=== PATIENT | female | born 1985 | race Caucasian/White ===

== ENCOUNTER 2018-03-08 00:56 | Emergency (ER) | payer SELFPAY ==
[~2018-03-08] VITALS: Ht 170.2 cm; Wt 81.3 kg
[2018-03-08] MEDS ORDERED: IV NORMAL SALINE 1000ML BAG 1,000 ML IV ONE (01:30)
[2018-03-08] MEDS ORDERED: DEXAMETHASONE SOD PHOS 4 MG/ML VIAL IV ONE (01:45)
[2018-03-08] MEDS ORDERED: KETOROLAC 30 MG/ML VIAL. IV ONE (01:45)
[2018-03-08 02:29] LABS: BASO # 0.1 x10^3/uL (0.0-0.2); BASO % 1 % (0-3); EOS # 0.1 x10^3/uL (0.0-0.7); EOS % 1 % (0-3); HEMATOCRIT 39.8 % (36.0-47.0); HEMOGLOBIN 13.9 g/dL (12.0-15.5); LYMPH # 3.5 x10^3/uL (1.0-4.8); LYMPH % 31 % (24-48); MEAN CORPUSCULAR HEMOGLOBIN 35 pg (25-35); MEAN CORPUSCULAR HGB CONC 35 g/dL (31-37); MEAN CORPUSCULAR VOLUME 101 fL (79-100); MONO # 0.8 x10^3/uL (0.0-1.1); MONO % 8 % (0-9); NEUT # 6.6 x10^3uL (1.8-7.7); NEUT % 59 % (31-73); PLATELET COUNT 210 x10^3/uL (140-400); RED BLOOD COUNT 3.93 x10^6/uL (3.50-5.40); RED CELL DISTRIBUTION WIDTH 13.5 % (11.5-14.5); WHITE BLOOD COUNT 11.2 x10^3/uL (4.0-11.0)
[2018-03-08] MEDS ORDERED: PRED50TA PO (03:00)
--- NOTE | 2018-03-08 03:07 | PHYS DOC ---
Past Medical History Past Medical History: No Pertinent History Past Surgical History: No Surgical History Alcohol Use: Occasionally Drug Use: None Adult General Chief Complaint Chief Complaint: SORE THROAT HPI HPI Patient is a 32 year old female who presents with sore throat and perceived swelling in her throat. Patient has been ill over the last 2-3 days. She primarily complains of sore throat. She also feels like there is some swelling in her throat that causes her to gag at home. She was evaluated at [facility] last night for the same complaint. According to the patient, she had a CT scan of the neck completed. She was given some unknown medication in her IV as well. She was discharged to home and given Percocet for pain. She does have the Percocet at home and states they have not been helping her. She felt this evening like she was gagging and she states she was afraid to go to sleep for fears that she would not be able to breathe. She has not had any acute respiratory distress. No fever but she has had some chills. According to the patient, her strep screen last night was negative. Review of Systems Review of Systems Constitutional: + chills Eyes: Denies change in visual acuity HENT: sore throat Respiratory: Denies SOA, + some coughing Cardiovascular: No additional information not addressed in HPI GI: Denies abdominal pain : Denies dysuria Musculoskeletal: Denies Integument: Denies rash Neurologic: Denies headache Endocrine: Denies polyuria All other systems were reviewed and found to be within normal limits, except as documented in this note. Current Medications Current Medications Current Medications Medications (Trade) Dose Ordered Sig/Frank Start Time Stop Time Status Last Admin Dose Admin Dexamethasone Sodium Phosphate (Decadron) 8 mg 1X ONCE 03/08/18 01:45 03/08/18 01:46 DC 03/08/18 02:09 8 MG Ketorolac Tromethamine (Toradol 30mg Vial) 30 mg 1X ONCE 03/08/18 01:45 03/08/18 01:46 DC 03/08/18 02:08 30 MG Lidocaine HCl (Viscous Lidocaine) 15 ml 1X ONCE 03/08/18 03:45 03/08/18 03:46 DC 03/08/18 03:38 15 ML Sodium Chloride 1,000 ml @ 1,000 mls/hr 1X ONCE 03/08/18 01:30 03/08/18 02:29 DC 03/08/18 02:07 1,000 MLS/HR Allergies Allergies Allergies Coded Allergies Type Severity Reaction Last Updated Verified mushroom Allergy Intermediate Shortness of Air 03/08/18 Yes acetaminophen Allergy Mild Rash 03/08/18 Yes hydrocodone Allergy Mild Rash 03/08/18 Yes bee venom protein (honey bee) Allergy Unknown 03/08/18 Yes Physical Exam Physical Exam Constitutional: Well developed, well nourished, no acute distress, non-toxic appearance HENT: Normocephalic, atraumatic, bilateral external ears normal, oropharynx moist, no oral exudates, nose normal, uvula appears very mildly edematous, posterior oral pharynx is mildly injected, no exudates. no swelling, Eyes: PERRLA, EOMI, conjunctiva normal Neck: Normal range of motion, no tenderness, supple Cardiovascular:Heart rate regular rhythm, no murmur Lungs & Thorax: Bilateral breath sounds clear to auscultation Skin: Warm, dry, no erythema, no rash Neurologic: Alert and oriented X 3 Psychologic: Affect normal Current Patient Data Vital Signs Vital Signs Date Time Temp Pulse Resp B/P (MAP) Pulse Ox O2 Delivery O2 Flow Rate FiO2 03/08/18 03:52 94 16 127/79 (95) 100 Room Air 03/08/18 01:01 99.4 99.4 Lab Values Laboratory Tests Test 03/08/18 01:09 03/08/18 02:15 POC Urine HCG, Qualitative Hcg negative (Negative) White Blood Count 11.2 x10^3/uL (4.0-11.0) H Red Blood Count 3.93 x10^6/uL (3.50-5.40) Hemoglobin 13.9 g/dL (12.0-15.5) Hematocrit 39.8 % (36.0-47.0) Mean Corpuscular Volume 101 fL (79-100) H Mean Corpuscular Hemoglobin 35 pg (25-35) Mean Corpuscular Hemoglobin Concent 35 g/dL (31-37) Red Cell Distribution Width 13.5 % (11.5-14.5) Platelet Count 210 x10^3/uL (140-400) Neutrophils (%) (Auto) 59 % (31-73) Lymphocytes (%) (Auto) 31 % (24-48) Monocytes (%) (Auto) 8 % (0-9) Eosinophils (%) (Auto) 1 % (0-3) Basophils (%) (Auto) 1 % (0-3) Neutrophils # (Auto) 6.6 x10^3uL (1.8-7.7) Lymphocytes # (Auto) 3.5 x10^3/uL (1.0-4.8) Monocytes # (Auto) 0.8 x10^3/uL (0.0-1.1) Eosinophils # (Auto) 0.1 x10^3/uL (0.0-0.7) Basophils # (Auto) 0.1 x10^3/uL (0.0-0.2) Laboratory Tests 03/08/18 02:15 EKG EKG [] Radiology/Procedures Radiology/Procedures [] Course & Med Decision Making Course & Med Decision Making Pertinent Labs and Imaging studies reviewed. (See chart for details) Patient is seen and examined after arrival to her room. She is in no acute distress. Her vital signs are stable but she is noted to have mild tachycardia with a heart rate of 108. Her oxygen saturation is 96% on room air. Her physical exam is documented above and there are no acute findings. There is no visible acute airway swelling and she has no distress. I discussed the possibility of false negative strep screen. We will recheck her strep screen this evening. IV fluids are ordered for her tachycardia. She does not have a fever this evening. Will give a dose of Decadron and Toradol intravenously. 03:05: Patient resting quietly with no distress. IVF's running. SaO2 96% on RA. 04:00: Patient was given some 2% viscous lidocaine to gargle and spit. She did get some relief of her pain symptoms with this. She is overall feeling improved after the fluids and the Decadron in the Toradol. Plan is for discharge home. She is placed on prednisone 50 mg daily over the next couple of days. She is given reassurance that her pain will improve. She will come back to the ER if she does develop any difficulties breathing. Dragon Disclaimer Dragon Disclaimer This electronic medical record was generated, in whole or in part, using a voice recognition dictation system. Departure Departure Impression: Primary Impression: Pharyngitis Disposition: HOME, SELF-CARE Condition: GOOD Patient Instructions: Sore Throat Scripts Prednisone (PREDNISONE) 50 Mg Tablet 1 TAB PO DAILY, #5 TAB Prov: MILAGROS TELLO DO 03/08/18 MILAGROS TELLO DO Mar 08, 2018 03:06
[2018-03-08] MEDS ORDERED: LIDOCAINE 2% VISCOUS 15 ML SOLUTION. SWSW ONE (03:45)
[2018-03-08 03:52] VITALS: BP 127/79
== END 2018-03-08 04:00 | disposition home or self-care (01) ==
LOC: ER 00:56
DX: J02.9 Acute pharyngitis, unspecified (principal); Z88.5 Allergy status to narcotic agent; Z88.6 Allergy status to analgesic agent; Z91.030 Bee allergy status; Z91.018 Allergy to other foods
CPT/HCPCS: 36415; 81025; 85025; 87070; 87880; 96374; 96375; 99283; J1100; J1885; J7030

== ENCOUNTER 2018-03-20 14:01 | Emergency (ER) | payer OTHER ==
[~2018-03-20] VITALS: Ht 165.1 cm; Wt 72.6 kg
[~2018-03-20 14:01] MED LIST: PRED50TA PO
[2018-03-20 14:10] VITALS: BP 121/78
[2018-03-20] MEDS ORDERED: BENZ100C PO (14:30)
--- NOTE | 2018-03-20 14:30 | PHYS DOC ---
Past Medical History Past Medical History: No Pertinent History Past Surgical History: No Surgical History Alcohol Use: Occasionally Drug Use: None Adult General Chief Complaint Chief Complaint: COUGH HPI HPI 32-year-old female returns to ER with complaints of similar symptoms as she was evaluated on 03/08/18 for. She reports she has had ongoing cough and fever with 101.4 temperature this morning she reports she took Tylenol at 8 AM denies any other medications. Patient reports she finished her prednisone prescription while she was provided during the last ER visit. Patient reports she has had no improvement in symptoms. Patient denies nausea or vomiting. She reports she had 1 episode of diarrhea today. Patient states she traveled to [place] the through yesterday. Patient is a daily smoker. LMP 03/17/18. Review of Systems Review of Systems Constitutional: Reports fever Eyes: Denies change in visual acuity, redness, or eye pain [] HENT: Denies nasal congestion or sore throat [] Respiratory: Reports nonprod. cough denies SOA Cardiovascular: Denies CP/palpitations GI: Denies abdominal pain, nausea, vomiting. Reports 1 episode of diarrhea today : Denies dysuria or hematuria [] Musculoskeletal: Denies back/neck pain or joint pain [] Integument: Denies rash or skin lesions [] Neurologic: Denies headache, focal weakness or sensory changes [] All other systems were reviewed and found to be within normal limits, except as documented in this note. Allergies Allergies Allergies Coded Allergies Type Severity Reaction Last Updated Verified mushroom Allergy Intermediate Shortness of Air 03/08/18 Yes acetaminophen Allergy Mild Rash 03/08/18 Yes hydrocodone Allergy Mild Rash 03/08/18 Yes bee venom protein (honey bee) Allergy Unknown 03/08/18 Yes Physical Exam Physical Exam Constitutional: Well developed, well nourished, no acute distress, non-toxic appearance. [] HENT: Normocephalic, atraumatic, bilateral external ears normal, oropharynx moist, no oral exudates, nose normal. [] Eyes: PERRLA, EOMI, conjunctiva normal, no discharge. [] Neck: Normal range of motion, no tenderness, supple, no stridor. [] Cardiovascular:Heart rate regular rhythm, no murmur [] Lungs & Thorax: Bilateral breath sounds clear to auscultation [] Abdomen: Bowel sounds normal, soft, no tenderness, no masses, no pulsatile masses. [] Skin: Warm, dry, no erythema, no rash. [] Back: No tenderness, no CVA tenderness. [] Extremities: No tenderness, no cyanosis, no clubbing, ROM intact, no edema. [] Neurologic: Alert and oriented X 3, normal motor function, normal sensory function, no focal deficits noted. [] Psychologic: Affect normal, judgement normal, mood normal. [] Current Patient Data Vital Signs Vital Signs Date Time Temp Pulse Resp B/P (MAP) Pulse Ox O2 Delivery O2 Flow Rate FiO2 03/20/18 14:10 97.7 91 18 121/78 (92) 95 Room Air 97.7 EKG EKG [] Radiology/Procedures Radiology/Procedures [] Course & Med Decision Making Course & Med Decision Making Patient voiced frustration as her symptoms have been ongoing for several weeks. Patient was able to travel to [place] however states she has been unable to work d/t her sxs. Patient was advised on exam being normal limits with no acute findings. Patient had stable vital signs and was afebrile. Patient advised on [id number] options for treatment. Patient will be provided with cough syrup per her request. Patient advised on need for follow-up with primary care physician if symptoms persist or with any concerns will provide clinic and physician referral information with discharge paperwork as patient states she just recently moved to this area. Dragon Disclaimer Dragon Disclaimer This electronic medical record was generated, in whole or in part, using a voice recognition dictation system. Departure Departure Impression: Primary Impression: Viral syndrome Additional Impression: Cough Disposition: 01 HOME, SELF-CARE Condition: STABLE Referrals: NO PCP (PCP) Patient Instructions: Cough, Adult, Viral Syndrome Additional Instructions: Discussed avoid smoking, drink plenty of fluids, and [id number] Tylenol and/or ibuprofen as needed for pain and fever relief. Cough drops and Chloraseptic spray as directed on container. If symptoms persist follow-up with primary care physician for reevaluation and further care. Scripts Benzonatate (TESSALON PERLE) 100 Mg Capsule 1 CAP PO TID PRN for COUGH, #12 CAP 0 Refills Prov: ROLA BURROUGHS APRN 03/20/18 Problem Qualifiers ROLA BURROUGHS APRN Mar 20, 2018 14:30
== END 2018-03-20 14:38 | disposition home or self-care (01) ==
LOC: ER 14:01
DX: B34.9 Viral infection, unspecified (principal)
CPT/HCPCS: 99283